=== PATIENT | male | born 1935 | race Caucasian/White ===

== ENCOUNTER → 2016-09-18 | Outpatient (CLI) | payer OTHER ==
[~2016-09-18] MED LIST: ASPI81TA28 PO; ATEN-173 PO; CHOL100010 PO; HYDR-3419 PO; OXYC-57 PO
--- NOTE | 2016-09-18 13:05 | DIAGNOSTIC IMAGING REPORT ---
CHEST 2 VIEWS ROUTINE HISTORY: N20.0 Nephrolithiasis COMPARISON: Chest 09/13/2015. FINDINGS: The lungs are clear. Cardiac silhouette is normal in size. No pleural effusions. No pneumothorax. IMPRESSION: No acute process. Electronically signed by: Michele Ferguson M.D. 09/18/2016 1:03 PM Dictated Date/Time: 09/18/2016 1:02 PM
[2016-09-18 13:11] LABS: BASO % 0.5 %; BASO ABS # 0.03 K/uL (0-0.2); COMPLETE YES; EOS % 2.4 %; HEMATOCRIT 42.4 % (42-52); IG% 0.5 %; LYMPH % 32.3 %; LYMPH ABS # 2.15 K/uL (1.2-3.4); MEAN CELL VOLUME 93.2 fL (80-100); MEAN CORPUSCULAR HEMOGLOBIN 30.8 pg (25-34); MEAN PLATELET VOLUME 10.1 fL (7.4-10.4); MONO % 9.2 %; NEUT % 55.1 %; PLATELET COUNT 258 K/uL (130-400); RED BLOOD COUNT 4.55 M/uL (4.7-6.1); WHITE BLOOD COUNT 6.65 K/uL (4.8-10.8)
[2016-09-18 13:50] LABS: BLOOD UREA NITROGEN 25 mg/dl (7-18); CALCIUM 9.3 mg/dl (8.5-10.1); CARBON DIOXIDE 26 mmol/L (21-32); CHLORIDE 109 mmol/L (98-107); GLUCOSE 85 mg/dl (70-99); SODIUM 142 mmol/L (136-145)
--- NOTE | 2016-09-18 13:54 | DIAGNOSTIC IMAGING REPORT ---
KUB CLINICAL HISTORY: 81 years-old Male presenting with nephrolithiasis and history of lithotripsy September 2010. TECHNIQUE: Single supine view of the abdomen was obtained. COMPARISON: 09/21/[address] from 07/13/2014. FINDINGS: Gas and stool degrade evaluation of the kidneys. At least 2 right renal calculi are noted, better visualized on CT from 07/13/2014. 7 mm calculus in the left kidney is likely also still present, although poorly visualized on the current exam. Multiple phleboliths in the pelvis unchanged. Nonobstructive bowel gas pattern. Degenerative changes of the lumbar spine. Lung bases clear. IMPRESSION: 1. Bilateral nephrolithiasis grossly similar in distribution to prior CT from 2014. Evaluation degraded by bowel gas overlying the left kidney. Electronically signed by: Nicolas Whyte M.D. 09/18/2016 1:52 PM Dictated Date/Time: 09/18/2016 1:49 PM
[2016-09-18 14:47] LABS: URINE APPEARANCE CLEAR (CLEAR); URINE BILIRUBIN NEG (NEG); URINE COLOR YELLOW; URINE NITRITE NEG (NEG); URINE PH 5.5 (4.5-7.5); URINE SPECIFIC GRAVITY 1.025 (1.000-1.030); UROBILINOGEN NEG (NEG)
[2016-09-18 14:52] LABS: MANUAL MICROSCOPIC REQUIRED? NO; REVIEW REQ? NO
== END | disposition home or self-care (01) ==
LOC: C.RAD 12:08
PROVIDERS: ATTEND Urology
DX: N20.0 Calculus of kidney (principal)

== ENCOUNTER → 2016-10-03 | Day surgery (SDC) | payer OTHER ==
[2016-09-22 08:32] VITALS: Ht 180.3 cm; Wt 91.8 kg
--- NOTE | 2016-10-02 15:25 | DIAGNOSTIC IMAGING REPORT ---
KUB CLINICAL HISTORY: N20.0 [id number] nephrocalcinosis COMPARISON STUDY: 09/18/2016 FINDINGS: Unchanging bilateral nephrocalcinosis. No new or interval finding. Multiple pelvic vascular calcifications. Nonobstructive bowel pattern. IMPRESSION: Stable bilateral nephrocalcinosis The above report was generated using voice recognition software. It may contain grammatical, syntax or spelling errors. Electronically signed by: Humphrey rBown M.D. 10/02/2016 3:24 PM Dictated Date/Time: 10/02/2016 3:24 PM
[~2016-10-03] VITALS: Ht 180.3 cm; Wt 91.8 kg
[~2016-10-03] MED LIST changes: +ACETAMINOPHEN 325 MG TAB PO PRN; +ATROPINE SULFATE 0.1 MG/ML 5ML SYR IV PRN; +CIPROFLOXACIN 400MG / D5W IV SCH; +DEXAMETHASONE SOD INJ 4 MG/ML VIAL ONE; +FENTANYL CITRATE INJ 50 MCG/1 ML 2 ML VIAL IV PRN; +FENTANYL CITRATE INJ 50 MCG/1 ML 2 ML VIAL ONE; +LACTATED RINGER'S 1000ML 1,000 ML IV SCH; +LIDOCAINE HCL 2% 2 ML VIAL (20MG/ML) ONE; +MIDAZOLAM HCL 1 MG/ML 2ML VIAL ONE; +ONDANSETRON INJ 2 MG/ML 2 ML VIAL IV PRN; +ONDANSETRON INJ 2 MG/ML 2 ML VIAL ONE; +OXYCODONE/ACETAMINOPHEN 5-325 TAB PO PRN; +PROPOFOL IV EMULSION 10 MG/ML 20 ML VIAL IV ONE; +SODIUM CHLORIDE 0.9% 1000ML 1,000 ML IV SCH
--- NOTE | 2016-10-03 08:45 | History & Physical Bridge Note ---
H&P Re-Evaluation Bridge Note: I have examined the patient, reviewed the History & Physical and in the interval since the performance of the History & Physical I have noted the following changes of clinical significance: No changes noted
--- NOTE | 2016-10-03 09:20 | Discharge Instructions-SurgCtr ---
Discharge Instructions Date of Service Oct 03, 2016. Visit Reason for Visit: Stones;Nephrolithiasis N20.0 Discharge Discharge Diagnosis / Problem: stones Discharge Goals Goal(s): Decrease discomfort, Improve function, Increase independence, Improve disease control Medications Stopped Medications Name(s): ASA stopped 3 weeks ago Activity Recommendations Activity Limitations: resume your previous activity Lifting Limitations: none Exercise/Sports Limitations: none May Resume Sexual Activity: when tolerated Shower/Bathe: no limitations Driving or Machine Use: no limitations Anesthesia . Post Anesthesia Instructions: If you have had General Anesthesia or IV Sedation: * Do not drive today. * Resume driving when surgeon permits. * Do not make important decisions or sign legal documents today. * Call surgeon for: 1. Temperature elevations greater than 101 degrees F. 2. Uncontrollable pain. 3. Excessive bleeding. 4. Persistent nausea and vomiting. 5. Medication intolerance (nausea, vomiting or rash). * For nausea and vomiting use only clear liquids such as: tea, soda, bouillon until nausea subsides, then gradually increase diet as tolerated. * If you have any concerns or questions, call your surgeon's office. If physician is unavailable and it is an emergency, call 911 or go to the nearest emergency room. . Diet Recommendations Home Diet: no limitations Procedures Procedures Performed: Right Extracorporeal Shock Wave Lithotripsy -Renal Pending Studies Studies pending at discharge: no Medical Emergencies . Who to Call and When: Medical Emergencies: If at any time you feel your situation is an emergency, please call 911 immediately. . Non-Emergent Contact Non-Emergency issues call your: Urologist Call Non-Emergent contact if: you have a fever, temperature is above 101.5, your pain is not controlled, your pain is worsening . . "Provider Documentation" section prepared by Evelio York. . [place] Drug Monitoring Program Search Results: patient reviewed within database, no issues identified
--- NOTE | 2016-10-03 09:24 | [facility] Operative Report ---
Operative Report Operative Date Oct 03, 2016. Pre-Operative Diagnosis Right Renal Calculi Post-Operative Diagnosis Same as pre-op Procedure(s) Performed Right Extracorporeal Shock Wave Lithotripsy -Renal Surgeon Dr. Jose Meehan Glue Mixer Surgeon(s) None Estimated Blood Loss 0 mL Findings Right renal stones Specimens None Drains none Anesthesia Gen. Complication(s) None Disposition Recovery Room / PACU (stable) Indications Right renal stones Description of Procedure Asad Cook was identified in the preoperative holding area, appropriate informed consent was reviewed and completed and the patient was transported to the operating suite. Upon arrival appropriate preoperative antibiotics were administered and general anesthesia induced. The patient was placed in supine position and the stones were localized under fluoroscopy. A total of 2500shocks were delivered to the stones - witth the first portion of the treatment focused on the upper pole stone followed by a move towards the mid/ lower pole stones later in the procedure. There appeared to be good fragmentation of the stones. Details of this procedure can be found on the [facility] information sheet. At the conclusion of the case the patient was extubated and taken to the PACU in stable condition. There were no complications. I attest to the content of the Intraoperative Record and any orders documented therein. Any exceptions are noted below.
--- NOTE | 2016-10-03 10:33 | Anesthesia Progress Nt - [facility] ---
Anesthesia Post Op Note Date & Time Oct 03, 2016 at 10:33 Vital Signs Pain Intensity: 0 Vital Signs Past 12 Hours Date Time Temp Pulse Resp B/P (MAP) Pulse Ox O2 Delivery O2 Flow Rate FiO2 10/03/16 10:14 36.1 61 14 154/86 (108) 99 Room Air 10/03/16 10:07 55 10 10/03/16 10:07 54 10 10/03/16 10:05 141/76 10/03/16 10:02 56 19 10/03/16 10:02 56 19 97 10/03/16 10:01 56 21 10/03/16 10:01 55 21 98 10/03/16 10:00 36.5 55 18 159/84 98 Room Air 10/03/16 10:00 159/84 10/03/16 09:56 59 13 10/03/16 09:56 61 13 100 10/03/16 09:55 136/71 10/03/16 09:51 53 13 10/03/16 09:51 55 13 100 10/03/16 09:50 130/75 10/03/16 09:47 151/64 10/03/16 09:46 58 14 10/03/16 09:46 58 14 100 10/03/16 09:41 36.8 60 12 130/75 96 Mask 6 10/03/16 09:41 54 10/03/16 09:41 54 143/80 99 10/03/16 07:22 36.5 63 16 143/85 (104) 97 Room Air Notes Mental Status: alert / awake / arousable, participated in evaluation Pt Amnestic to Procedure: Yes Nausea / Vomiting: adequately controlled Pain: adequately controlled Airway Patency, RR, SpO2: stable & adequate BP & HR: stable & adequate Hydration State: stable & adequate Anesthetic Complications: no major complications apparent
[2016-10-03 10:37] VITALS: BP 164/77; PULSE 57; TEMP 36.4; O2SAT 97
== END | disposition home or self-care (01) ==
LOC: X.SURG 06:33
PROVIDERS: ATTEND Urology
DX: N20.0 Calculus of kidney (principal); N40.1 Benign prostatic hyperplasia with lower urinary tract symptoms; N13.8 Other obstructive and reflux uropathy; Z87.39 Personal history of other diseases of the musculoskeletal system and connective tissue; E78.00 Pure hypercholesterolemia, unspecified; Z84.1 Family history of disorders of kidney and ureter; Z79.899 Other long term (current) drug therapy

== ENCOUNTER → 2016-10-23 | Outpatient (CLI) | payer OTHER ==
[~2016-10-23] MED LIST changes: -ACETAMINOPHEN 325 MG TAB PO PRN; -ATROPINE SULFATE 0.1 MG/ML 5ML SYR IV PRN; -CIPROFLOXACIN 400MG / D5W IV SCH; -DEXAMETHASONE SOD INJ 4 MG/ML VIAL ONE; -FENTANYL CITRATE INJ 50 MCG/1 ML 2 ML VIAL IV PRN; -FENTANYL CITRATE INJ 50 MCG/1 ML 2 ML VIAL ONE; -LACTATED RINGER'S 1000ML 1,000 ML IV SCH; -LIDOCAINE HCL 2% 2 ML VIAL (20MG/ML) ONE; -MIDAZOLAM HCL 1 MG/ML 2ML VIAL ONE; -ONDANSETRON INJ 2 MG/ML 2 ML VIAL IV PRN; -ONDANSETRON INJ 2 MG/ML 2 ML VIAL ONE; -OXYCODONE/ACETAMINOPHEN 5-325 TAB PO PRN; -PROPOFOL IV EMULSION 10 MG/ML 20 ML VIAL IV ONE; -SODIUM CHLORIDE 0.9% 1000ML 1,000 ML IV SCH
[2016-10-23 13:03] LABS: URINE APPEARANCE CLEAR (CLEAR); URINE BILIRUBIN NEG (NEG); URINE COLOR YELLOW; URINE NITRITE NEG (NEG); URINE PH 5.5 (4.5-7.5); UROBILINOGEN NEG (NEG)
[2016-10-23 13:17] LABS: MANUAL MICROSCOPIC REQUIRED? NO; REVIEW REQ? NO
[2016-10-23 13:34] LABS: BLOOD UREA NITROGEN 17 mg/dl (7-18); BUN/CREATININE RATIO 15.1 (10-20); CARBON DIOXIDE 26 mmol/L (21-32); CHLORIDE 106 mmol/L (98-107); POTASSIUM 4.1 mmol/L (3.5-5.1); SODIUM 138 mmol/L (136-145)
[2016-10-23 13:40] LABS: BASO % 0.5 %; BASO ABS # 0.03 K/uL (0-0.2); COMPLETE YES; EOS % 1.7 %; HEMATOCRIT 42.3 % (42-52); IG% 0.5 %; LYMPH % 31.7 %; LYMPH ABS # 2.06 K/uL (1.2-3.4); MEAN CELL VOLUME 93.2 fL (80-100); MEAN CORPUSCULAR HEMOGLOBIN 29.3 pg (25-34); MEAN CORPUSCULAR HGB CONC 31.4 g/dl (32-36); MEAN PLATELET VOLUME 10.4 fL (7.4-10.4); MONO % 11.2 %; NEUT % 54.4 %; PLATELET COUNT 245 K/uL (130-400); RED BLOOD COUNT 4.54 M/uL (4.7-6.1); WHITE BLOOD COUNT 6.49 K/uL (4.8-10.8)
== END | disposition home or self-care (01) ==
LOC: C.LABMFLN 10:55
PROVIDERS: ATTEND Urology
DX: N20.0 Calculus of kidney (principal)

== ENCOUNTER → 2016-10-30 | Outpatient (CLI) | payer OTHER ==
[~2016-10-30] MED LIST changes: -OXYC-57 PO
--- NOTE | 2016-10-30 12:19 | DIAGNOSTIC IMAGING REPORT ---
KUB CLINICAL HISTORY: 81 years-old Male presenting with nephrolithiasis, lithotripsy of the left kidney tomorrow, lithotripsy of the right kidney 3-4 weeks ago. TECHNIQUE: Single supine view of the abdomen was obtained. COMPARISON: 10/02/2016. FINDINGS: Previously noted bilateral renal calculi are largely obscured secondary to stool and bowel gas. The right renal calculus is likely identified at the lower pole. Possible left renal calculi identified, although this is not definite. Mild gaseous distention of small bowel without convincing evidence of obstruction. Suggestion of mild small bowel wall thickening. No gross pneumoperitoneum. Degenerative changes of the spine. IMPRESSION: 1. Overall poor visualization of renal calculi secondary to stool and bowel gas. 2. Mild gaseous distention of small bowel with suggestion of small bowel wall thickening could suggest ileus with possible enteritis. Correlate clinically. Electronically signed by: Nicolas Whyte M.D. 10/30/2016 12:18 PM Dictated Date/Time: 10/30/2016 12:13 PM
== END | disposition home or self-care (01) ==
LOC: C.RAD 11:09
PROVIDERS: ATTEND Urology
DX: N20.0 Calculus of kidney (principal)

== ENCOUNTER → 2016-10-31 | Day surgery (SDC) | payer OTHER ==
[2016-10-24 14:33] VITALS: Ht 180.3 cm; Wt 91.8 kg
[~2016-10-31] VITALS: Ht 180.3 cm; Wt 91.8 kg
[~2016-10-31] MED LIST changes: +ATROPINE SULFATE 0.1 MG/ML 5ML SYR IV PRN; +CIPROFLOXACIN 400MG / D5W IV SCH; +DEXAMETHASONE SOD INJ 4 MG/ML VIAL ONE; +EpHEDrine SULFATE INJ 50 MG/ML AMP IV PRN; +FENTANYL CITRATE INJ 50 MCG/1 ML 2 ML VIAL IV PRN; +FENTANYL CITRATE INJ 50 MCG/1 ML 2 ML VIAL ONE; +LACTATED RINGER'S 1000ML 1,000 ML IV SCH; +LIDOCAINE HCL 2% 2 ML VIAL (20MG/ML) ONE; +ONDANSETRON INJ 2 MG/ML 2 ML VIAL ONE; +PROPOFOL IV EMULSION 10 MG/ML 20 ML VIAL IV ONE
--- NOTE | 2016-10-31 09:28 | Discharge Instructions-SurgCtr ---
Discharge Instructions Date of Service Oct 31, 2016. Visit Reason for Visit: Stones Discharge Discharge Diagnosis / Problem: post op l eswl Discharge Goals Goal(s): Improve disease control Medications Stopped Medications Name(s): asa and vit d stopped 6-8 weeks ago. Activity Recommendations Activity Limitations: resume your previous activity Anesthesia . Post Anesthesia Instructions: If you have had General Anesthesia or IV Sedation: * Do not drive today. * Resume driving when surgeon permits. * Do not make important decisions or sign legal documents today. * Call surgeon for: 1. Temperature elevations greater than 101 degrees F. 2. Uncontrollable pain. 3. Excessive bleeding. 4. Persistent nausea and vomiting. 5. Medication intolerance (nausea, vomiting or rash). * For nausea and vomiting use only clear liquids such as: tea, soda, bouillon until nausea subsides, then gradually increase diet as tolerated. * If you have any concerns or questions, call your surgeon's office. If physician is unavailable and it is an emergency, call 911 or go to the nearest emergency room. . Diet Recommendations Home Diet: resume previous diet Procedures Procedures Performed: Left Extracorporeal Shock Wave Lithotripsy Pending Studies Studies pending at discharge: no Medical Emergencies . Who to Call and When: Medical Emergencies: If at any time you feel your situation is an emergency, please call 911 immediately. . Non-Emergent Contact Non-Emergency issues call your: Urologist . . "Provider Documentation" section prepared by Elton Finnegan. .
--- NOTE | 2016-10-31 09:28 | [facility] Post Operative Brief Note ---
Immediate Operative Summary Operative Date Oct 31, 2016. Pre-Operative Diagnosis Left Renal Stone Post-Operative Diagnosis Same Procedure(s) Performed Left Extracorporeal Shock Wave Lithotripsy Surgeon Dr. Finnegan Industrial Roof Plumber Surgeon(s) None Estimated Blood Loss 0 mL Findings stone appeared machine pecan picker after eswl Specimens None
[2016-10-31 10:39] VITALS: BP 169/85; PULSE 58; TEMP 36.4; O2SAT 98
--- NOTE | 2016-10-31 10:46 | Anesthesiology Progress Note ---
Anesthesia Post Op Note Date & Time Oct 31, 2016 at 10:46 Vital Signs Pain Intensity: 0 Vital Signs Past 12 Hours Date Time Temp Pulse Resp B/P (MAP) Pulse Ox O2 Delivery O2 Flow Rate FiO2 10/31/16 10:39 36.4 58 16 169/85 (113) 98 Room Air 10/31/16 10:21 66 16 184/88 (120) 97 Room Air 10/31/16 10:12 36.4 10/31/16 10:11 153/84 (94) 10/31/16 10:07 59 6 98 10/31/16 10:07 58 6 10/31/16 10:06 161/79 (99) 10/31/16 10:05 Room Air 10/31/16 10:02 58 14 97 10/31/16 10:02 57 14 10/31/16 10:01 162/81 (96) 10/31/16 09:57 63 15 10/31/16 09:57 64 15 100 10/31/16 09:56 162/91 (103) 10/31/16 09:52 61 21 10/31/16 09:52 62 21 100 10/31/16 09:51 169/92 (97) 10/31/16 09:47 18 10/31/16 09:47 64 18 10/31/16 09:46 157/84 (99) 10/31/16 09:43 153/94 (102) 10/31/16 09:40 36.6 61 16 153/94 99 Diffusion Mask 5 10/31/16 07:01 36.6 59 18 157/78 (104) 98 Room Air Notes Mental Status: alert / awake / arousable, participated in evaluation Pt Amnestic to Procedure: Yes Nausea / Vomiting: adequately controlled Pain: adequately controlled Airway Patency, RR, SpO2: stable & adequate BP & HR: stable & adequate Hydration State: stable & adequate Anesthetic Complications: no major complications apparent
--- NOTE | 2016-10-31 10:58 | OPERATIVE REPORT ---
DATE OF OPERATION: 10/31/2016 PREOPERATIVE DIAGNOSIS: Left renal stone. PROCEDURE: L eswl SURGEON: Dr. Elton Finnegan. DESCRIPTION OF THE PROCEDURE: The patient was taken to the cysto suite where the stone was seen prior to giving him anesthesia given that it was difficult to see previously because of bowel gas. The stone was visualized. The patient was given general anesthesia with Venodyne stockings had been given preoperative antibiotics. The stone was visualized in 2 pantoja and then he was given 2500 shocks, the majority at level 5. At the end of the procedure, the patient was transferred to the recovery room in stable condition. I attest to the content of the Intraoperative Record and any orders documented therein. Any exceptions are noted below. SAMIRA
== END | disposition home or self-care (01) ==
LOC: X.SURG 06:46
PROVIDERS: ATTEND Urology
DX: N20.0 Calculus of kidney (principal); N40.1 Benign prostatic hyperplasia with lower urinary tract symptoms; N13.8 Other obstructive and reflux uropathy; M19.90 Unspecified osteoarthritis, unspecified site; R31.29 Other microscopic hematuria; Z79.82 Long term (current) use of aspirin

== ENCOUNTER → 2017-05-14 | Outpatient (CLI) | payer OTHER ==
[~2017-05-14] MED LIST changes: -ATROPINE SULFATE 0.1 MG/ML 5ML SYR IV PRN; -CIPROFLOXACIN 400MG / D5W IV SCH; -DEXAMETHASONE SOD INJ 4 MG/ML VIAL ONE; -EpHEDrine SULFATE INJ 50 MG/ML AMP IV PRN; -FENTANYL CITRATE INJ 50 MCG/1 ML 2 ML VIAL IV PRN; -FENTANYL CITRATE INJ 50 MCG/1 ML 2 ML VIAL ONE; -HYDR-3419 PO; -LACTATED RINGER'S 1000ML 1,000 ML IV SCH; -LIDOCAINE HCL 2% 2 ML VIAL (20MG/ML) ONE; -ONDANSETRON INJ 2 MG/ML 2 ML VIAL ONE; -PROPOFOL IV EMULSION 10 MG/ML 20 ML VIAL IV ONE
[2017-05-14 13:06] LABS: BASO % 0.5 %; BASO ABS # 0.03 K/uL (0-0.2); EOS % 1.2 %; EOS ABS # 0.08 K/uL (0-0.5); HEMATOCRIT 40.6 % (42-52); HEMOGLOBIN 13.4 g/dL (14.0-18.0); IG# 0.03 K/uL (0.00-0.02); LYMPH % 25.9 %; LYMPH ABS # 1.71 K/uL (1.2-3.4); MEAN CELL VOLUME 92.1 fL (80-100); MEAN CORPUSCULAR HEMOGLOBIN 30.4 pg (25-34); MEAN PLATELET VOLUME 10.1 fL (7.4-10.4); MONO % 7.7 %; MONO ABS # 0.51 K/uL (0.11-0.59); NEUT % 64.2 %; NEUT ABS # 4.24 K/uL (1.4-6.5); PLATELET COUNT 258 K/uL (130-400); RED CELL DISTRIBUTION WIDTH CV 14.3 % (11.5-14.5); RED CELL DISTRIBUTION WIDTH SD 48.8 fL (36.4-46.3)
[2017-05-14 14:20] LABS: ALBUMIN 3.5 gm/dl (3.4-5.0); ALT/SGPT 17 U/L (12-78); BLOOD UREA NITROGEN 22 mg/dl (7-18); CALCIUM 9.1 mg/dl (8.5-10.1); CARBON DIOXIDE 27 mmol/L (21-32); CHOLESTEROL 213 mg/dl (0-200); GLUCOSE 90 mg/dl (70-99); POTASSIUM 4.4 mmol/L (3.5-5.1); SODIUM 140 mmol/L (136-145)
[2017-05-14 14:24] LABS: ALKALINE PHOSPHATASE 91 U/L (45-117); AST/SGOT 14 U/L (15-37); LDL CHOLESTEROL CALCULATED 145 mg/dl; TOTAL PROTEIN 7.3 gm/dl (6.4-8.2)
== END | disposition home or self-care (01) ==
LOC: C.LABMFLN 09:47
PROVIDERS: ATTEND Family Medicine
DX: I10 Essential (primary) hypertension (principal); E78.5 Hyperlipidemia, unspecified; R31.29 Other microscopic hematuria